=== PATIENT | male | born 1940 | race Caucasian/White ===

== ENCOUNTER 2018-03-03 13:41 | Emergency (ER) | payer OTHER ==
[~2018-03-03] VITALS: Ht 182.9 cm; Wt 80.7 kg
[~2018-03-03 13:41] MED LIST: ACETAMINOPHEN325 M1 PO; ASPERCREME 1141.7 GM; ASPIRIN325 PO; CLARITIN10 MG PO; CLOBETASOL EMOL15 GM TOP; COLACE100 MG PO; EFFIENT10 MG PO; FISH OIL 1,0001 EAC5 PO; FLOMAX0.4 MG PO; FLONASE 0.05%50 MCG NS; HALOBETASOL TOP; IBUPROFEN 800800 M1 PO; MEDROL DOSPAK21 TAB PO; MOBIC15 MG PO; NEURONTIN 300300 M1 PO; NITROGLYCERIN0.4 MG SL; NITROGLYCERIN0.4 MG SUBLING; NOHOMEMEDICATIONS; ONDANSETRON HCL4 M1 PO; ONDANSETRON HCL4 M2 PO; PERCOCET 5-3251 EACH PO; SIMVASTATIN20 MG PO; SIMVASTATIN40 MG PO; TAGAMETTAB PO; TOPROL XL25 MG PO; TYLENOL325 MG PO; VOLTAREN GEL 1100 G1 TOP; ZPAK PO
[2018-03-03] MEDS ORDERED: VALIUM5 MG PO (15:00)
== END 2018-03-03 15:05 | disposition home or self-care (01) ==
LOC: ER 13:41
DX: G89.29 Other chronic pain (principal); M54.5 Low back pain; I10 Essential (primary) hypertension; I25.10 Atherosclerotic heart disease of native coronary artery without angina pectoris; E78.5 Hyperlipidemia, unspecified; L40.9 Psoriasis, unspecified; Z96.643 Presence of artificial hip joint, bilateral; Z86.73 Personal history of transient ischemic attack (TIA), and cerebral infarction without residual deficits; Z79.899 Other long term (current) drug therapy; Z88.0 Allergy status to penicillin; Z88.1 Allergy status to other antibiotic agents; Z88.8 Allergy status to other drugs, medicaments and biological substances; Z91.041 Radiographic dye allergy status

== ENCOUNTER 2018-04-29 12:08 | Emergency (ER) | payer OTHER ==
[~2018-04-29] VITALS: Ht 182.9 cm; Wt 80.7 kg
[~2018-04-29 12:08] MED LIST changes: +VALIUM5 MG PO
[2018-04-29 13:16] LABS: URINE BILIRUBIN NEGATIVE (Negative); URINE BLOOD NEGATIVE (Negative); URINE CLARITY CLEAR; URINE COLOR YELLOW; URINE GLUCOSE-RANDOM* NEGATIVE (Negative); URINE KETONES NEGATIVE (Negative); URINE LEUKOCYTES-REFLEX NEGATIVE (Negative); URINE NITRITE-REFLEX NEGATIVE (Negative); URINE PROTEIN (DIPSTICK) NEGATIVE (Negative); URINE UROBILINOGEN 0.2 E.U./dl (0.2-1.0)
[2018-04-29 13:31] LABS: ABSOLUTE NEUTROPHILS 4.5 thou/uL (1.4-8.2); BASOPHILS 0.9 % (0.0-2.0); EOSINOPHILS 1.3 % (0.0-3.0); HEMATOCRIT 34.1 % (42.0-52.0); HEMOGLOBIN 11.9 gm/dL (14.0-18.0); LYMPHOCYTES 30.9 % (24.0-44.0); MCH 33.9 pg (26.0-34.0); MCV 96.8 fL (80.0-100.0); MONOCYTES 8.5 % (1.0-8.0); PLATELET COUNT 161 thou/uL (150-400); POLYS 58.4 % (36.0-66.0); RBC 3.53 mil/uL (4.50-6.00); RDW 14.6 % (10.5-14.5); WBC 7.7 thou/uL (4.0-11.0)
[2018-04-29 13:34] LABS: CALCIUM 10.3 mg/dL (8.5-10.1); CREATININE 1.6 mg/dL (0.7-1.3); POTASSIUM 4.2 mmol/L (3.5-5.1)
[2018-04-29] MEDS ORDERED: SENNA-DOCUSATE1 EAC1 PO (16:57)
[2018-04-29] MEDS ORDERED: PERCOCET 5-3251 EACH PO (16:57)
[2018-04-29 17:06] VITALS: BP 130/71
== END 2018-04-29 17:13 | disposition home or self-care (01) ==
LOC: ER 12:08
PROVIDERS: Emergency Medicine
DX: M54.42 Lumbago with sciatica, left side (principal); M54.41 Lumbago with sciatica, right side; M48.02 Spinal stenosis, cervical region; I10 Essential (primary) hypertension; N40.0 Benign prostatic hyperplasia without lower urinary tract symptoms; I25.10 Atherosclerotic heart disease of native coronary artery without angina pectoris; E78.5 Hyperlipidemia, unspecified; Z98.62 Peripheral vascular angioplasty status; Z96.643 Presence of artificial hip joint, bilateral; Z88.1 Allergy status to other antibiotic agents; Z88.0 Allergy status to penicillin; Z91.041 Radiographic dye allergy status; Z88.8 Allergy status to other drugs, medicaments and biological substances

== ENCOUNTER 2018-05-16 14:19 | Emergency (ER) | payer OTHER ==
[~2018-05-16] VITALS: Ht 182.9 cm; Wt 77.1 kg
[~2018-05-16 14:19] MED LIST changes: +SENNA-DOCUSATE1 EAC1 PO
[2018-05-16 14:56] LABS: ABSOLUTE NEUTROPHILS 3.5 thou/uL (1.4-8.2); BASOPHILS 0.9 % (0.0-2.0); EOSINOPHILS 0.5 % (0.0-3.0); HEMATOCRIT 31.1 % (42.0-52.0); HEMOGLOBIN 10.8 gm/dL (14.0-18.0); LYMPHOCYTES 29.1 % (24.0-44.0); MCH 33.9 pg (26.0-34.0); MCHC 34.6 g/dL (28.0-37.0); MONOCYTES 10.9 % (1.0-8.0); PLATELET COUNT 194 thou/uL (150-400); POLYS 58.6 % (36.0-66.0); RBC 3.18 mil/uL (4.50-6.00); RDW 14.5 % (10.5-14.5)
[2018-05-16 15:05] LABS: CALCIUM 9.6 mg/dL (8.5-10.1); CREATININE 1.6 mg/dL (0.7-1.3); POTASSIUM 3.8 mmol/L (3.5-5.1)
[2018-05-16 15:11] LABS: ALBUMIN 3.5 g/dL (3.4-5.0); TOTAL BILIRUBIN 0.4 mg/dL (<0.1-1.0); TOTAL PROTEIN 8.7 g/dL (6.4-8.2)
[2018-05-16 15:21] LABS: URINE BILIRUBIN NEGATIVE (Negative); URINE BLOOD NEGATIVE (Negative); URINE CLARITY CLEAR; URINE COLOR YELLOW; URINE GLUCOSE-RANDOM* NEGATIVE (Negative); URINE KETONES NEGATIVE (Negative); URINE LEUKOCYTES NEGATIVE (Negative); URINE NITRITE NEGATIVE (Negative); URINE PROTEIN (DIPSTICK) NEGATIVE (Negative); URINE UROBILINOGEN 0.2 E.U./dl (0.2-1.0)
[2018-05-16] MEDS ORDERED: ASPIR 8181 M1 PO (15:22)
[2018-05-16 16:40] VITALS: BP 152/74
== END 2018-05-16 16:46 | disposition home or self-care (01) ==
LOC: ER 14:19
PROVIDERS: Emergency Medicine
DX: R10.33 Periumbilical pain (principal); R19.7 Diarrhea, unspecified; I10 Essential (primary) hypertension; I25.10 Atherosclerotic heart disease of native coronary artery without angina pectoris; M19.90 Unspecified osteoarthritis, unspecified site; E78.5 Hyperlipidemia, unspecified; L40.9 Psoriasis, unspecified; Z91.048 Other nonmedicinal substance allergy status; Z88.1 Allergy status to other antibiotic agents; Z88.0 Allergy status to penicillin; Z88.8 Allergy status to other drugs, medicaments and biological substances; Z91.041 Radiographic dye allergy status; Z96.643 Presence of artificial hip joint, bilateral

== ENCOUNTER 2018-08-23 16:39 | Inpatient (IN) | payer OTHER ==
[~2018-08-23] VITALS: Ht 182.9 cm; Wt 81.2 kg
[~2018-08-23 16:39] MED LIST changes: +ASPIR 8181 M1 PO
[2018-08-23 16:58] VITALS: BP 144/63
[2018-08-23 17:35] LABS: BASOPHILS 0.3 % (0.0-2.0); EOSINOPHILS 0.3 % (0.0-3.0); HEMATOCRIT 31.3 % (42.0-52.0); HEMOGLOBIN 10.7 gm/dL (14.0-18.0); LYMPHOCYTES 11.6 % (24.0-44.0); MCH 34.5 pg (26.0-34.0); MCHC 34.2 g/dL (28.0-37.0); MCV 100.9 fL (80.0-100.0); MONOCYTES 3.2 % (1.0-8.0); PLATELET COUNT 113 thou/uL (150-400); POLYS 84.6 % (36.0-66.0); RDW 15.9 % (10.5-14.5); WBC 9.4 thou/uL (4.0-11.0)
[2018-08-23 17:58] LABS: CALCIUM 9.4 mg/dL (8.5-10.1); CREATININE 1.3 mg/dL (0.7-1.3); POTASSIUM 3.7 mmol/L (3.5-5.1)
[2018-08-23 18:06] LABS: ALBUMIN 3.7 g/dL (3.4-5.0); TOTAL BILIRUBIN 1.8 mg/dL (<0.1-1.0); TOTAL PROTEIN 8.6 g/dL (6.4-8.2)
[2018-08-23 20:44] LABS: URINE BILIRUBIN NEGATIVE (Negative); URINE BLOOD NEGATIVE (Negative); URINE CLARITY CLEAR; URINE COLOR YELLOW; URINE GLUCOSE-RANDOM* NEGATIVE (Negative); URINE KETONES NEGATIVE (Negative); URINE LEUKOCYTES NEGATIVE (Negative); URINE NITRITE NEGATIVE (Negative); URINE PROTEIN (DIPSTICK) NEGATIVE (Negative); URINE SPECIFIC GRAVITY <= 1.005 (1.005-1.035); URINE UROBILINOGEN 0.2 E.U./dl (0.2-1.0)
[2018-08-23 21:17] VITALS: BP 143/62
[2018-08-23 21:29] VITALS: BP 113/57
[2018-08-23] MEDS ORDERED: COLACE100 MG PO (22:22)
[2018-08-23 22:24] VITALS: BP 119/56
[2018-08-24 03:24] VITALS: BP 122/61
[2018-08-24 05:53] LABS: HEMATOCRIT 27.4 % (42.0-52.0); HEMOGLOBIN 9.5 gm/dL (14.0-18.0); MCH 35.1 pg (26.0-34.0); MCHC 34.9 g/dL (28.0-37.0); MCV 100.8 fL (80.0-100.0); RBC 2.72 mil/uL (4.50-6.00); RDW 15.9 % (10.5-14.5); WBC 8.9 thou/uL (4.0-11.0)
[2018-08-24 06:12] LABS: CALCIUM 8.4 mg/dL (8.5-10.1); CREATININE 1.4 mg/dL (0.7-1.3); POTASSIUM 3.9 mmol/L (3.5-5.1); TOTAL BILIRUBIN 0.9 mg/dL (<0.1-1.0); TOTAL PROTEIN 7.5 g/dL (6.4-8.2)
[2018-08-24 07:19] VITALS: BP 104/57
--- NOTE | 2018-08-24 07:52 | EKG ---
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1940 Requested By: Linda Moise Order Number: [id number] MD: Kishor De La Vega Measurements Intervals [place] Rate: 75 P: 49 IN: 210 QRS: 21 QRSD: 103 T: 31 QT: 394 QTc: 441 Interpretive Statements Sinus rhythm RSR' in V1 or V2, probably normal variant Compared to ECG 04/18/2016 02:06:14 No significant changes Electronically Signed On 08-24-2018 7:52:36 CDT by Kishor De La Vega [email or web address] ��������������������������������������������� <ELECTRONICALLY SIGNED> ���������������������������������������� By: Kishor De La Vega MD, [facility] ��������������������������������������������� 08/24/18 0752 [id number] Kishor De La Vega MD, [facility] /EPI
--- NOTE | 2018-08-24 10:20 | NUR ---
chart review, cm visited with pt at bedside. pt a & o x 3 with forgetfulness and pleasant. wiyot. intro to cm, home health, post acute. " i will be going home with my she is nurse at [employer]. have 2 boy with good jobs and daughter who good nurse to. no steps at home, cane, walker, wc, and power scooter. does errands and medications, she lays them out and i take them. she helps me with dressing and stay with me when shower. hh in past. why to i need hh tell me what to do. drives. 1 little fall in past year. no rehab in past. 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 will cont following as needed for dc needs.
[2018-08-24 15:03] VITALS: BP 116/58
[2018-08-24 20:05] VITALS: BP 106/77
--- NOTE | 2018-08-24 20:08 | NUR ---
ASSUMED PATIENT CARE AT 0715. PATIENT AWAKE, ALERT AND ORIENTED X 4. PATIENT FRUSTRATED BECAUSE HE IS NPO. MOUTH SWABS PROVIDED WITH ICE WATER. USED URINAL AT BEDSIDE. MEDICATED WITH MORPHINE THIS MORNING AND SLEPT FOR A COUPLE OF HOURS. VISITED THIS AFTERNOON. PATIENT COMPLAINED THIS AFTERNOON THAT NO ONE IS DOING ANYTHING FOR ME AND I WANT TO GO HOME. DR. GIORDANO VISITED AND GAVE EMOTIONAL SUPPORT. PATIENT THEN DECIDED HE WAS GOING HOME AND TOOK HIS TELEMETRY OFF, AND STARTED PUTTING HIS CLOTHES ON. THIS RN CALLED DR. SILVA AND RECEIVED ORDER FOR SEROQUEL AND TO TELL PATIENT IF HE WANTS TO GO HOME HE WILL HAVE TO GO AMA. STEPHANIE RN THEN SPOKE WITH PATIENT AND CONVINCED HIM TO STAY. SEROQUEL GIVEN AND PATIENT THEN RESTED WITH NO FURTHER COMPLAINTS. FALL PRECAUTIONS IN PLACE.
[2018-08-25 03:25] VITALS: BP 154/60
[2018-08-25 06:04] LABS: ALBUMIN 2.9 g/dL (3.4-5.0); CALCIUM 8.3 mg/dL (8.5-10.1); CREATININE 1.2 mg/dL (0.7-1.3); POTASSIUM 3.9 mmol/L (3.5-5.1); TOTAL BILIRUBIN 0.9 mg/dL (<0.1-1.0); TOTAL PROTEIN 7.5 g/dL (6.4-8.2)
[2018-08-25 06:10] LABS: CHOLESTEROL 176 mg/dL (<200); HDL CHOLESTEROL 41 mg/dL (>40); TC:HDL 4.3 Ratio (Not establshd)
[2018-08-25 06:12] LABS: LDL CHOLESTEROL 120 mg/dL (<100); TRIGLYCERIDE 76 mg/dL (<150); VLDL 15 mg/dL (<40)
--- NOTE | 2018-08-25 07:59 | NUR ---
progress pt up with assist slightly unsteady. vss, iv to lf with ns@ 100ccs/hr. voiding per urinal but incontinent x 2. 2 doses of morphine given with effect for abdominal pain pt slept after. on room air, reoriented to room call light and poc, continue to monitor.
[2018-08-25 08:21] LABS: FOLIC ACID 11.3 ng/mL (8.6-58.9)
[2018-08-25 08:43] VITALS: BP 152/60
--- NOTE | 2018-08-25 14:30 | NUR ---
ASSUMED CARE PT 0700. PAIN MANAGED WITH MEDICATIONS. ALERTX3 ANXIOUS, IMPULSIVE, AND AGITATED REQUIRES REORRIANTATION AT TIMES. TOLERATING CLEAR LIQUID DIET. DENIES USE OF ETOH. CONFIRMED DOES NOT DRINK. FULL FALL PRECAUTIONS IN PLACE. CONTINUE TO MONITOR
[2018-08-25 19:15] VITALS: BP 132/77
[2018-08-26 04:04] VITALS: BP 149/68
[2018-08-26 04:13] VITALS: BP 115/67
[2018-08-26 05:44] LABS: HEMATOCRIT 29.2 % (42.0-52.0); MCH 34.8 pg (26.0-34.0); MCHC 34.2 g/dL (28.0-37.0); MCV 101.8 fL (80.0-100.0); RBC 2.86 mil/uL (4.50-6.00); RDW 15.9 % (10.5-14.5); WBC 9.4 thou/uL (4.0-11.0)
[2018-08-26 05:56] LABS: ALBUMIN 2.9 g/dL (3.4-5.0); CALCIUM 8.5 mg/dL (8.5-10.1); POTASSIUM 3.5 mmol/L (3.5-5.1); TOTAL BILIRUBIN 0.8 mg/dL (<0.1-1.0); TOTAL PROTEIN 7.3 g/dL (6.4-8.2)
[2018-08-26 07:39] VITALS: BP 137/82
[2018-08-26 11:26] VITALS: BP 137/82
--- NOTE | 2018-08-26 13:30 | NUR ---
DIS PT IS FOR DC TODAY, IV AND TELE DC'D. DC PACKET PROVIDED. INFORMED ABOUT DC.
== END 2018-08-26 15:08 | disposition home or self-care (01) | DRG 438 ==
LOC: ER 16:39 → EROBS 21:09 → 4W 21:09
PROVIDERS: Nurse Practitioner; Nurse Practitioner Family; Student in an Organized Health Care Education/Training Program; ADMIT Hospitalist
DX: K85.90 Acute pancreatitis without necrosis or infection, unspecified (principal); E43 Unspecified severe protein-calorie malnutrition; R74.0 Nonspecific elevation of levels of transaminase and lactic acid dehydrogenase [LDH]; I10 Essential (primary) hypertension; M19.90 Unspecified osteoarthritis, unspecified site; I25.10 Atherosclerotic heart disease of native coronary artery without angina pectoris; E78.5 Hyperlipidemia, unspecified; N40.0 Benign prostatic hyperplasia without lower urinary tract symptoms; L40.9 Psoriasis, unspecified; D53.9 Nutritional anemia, unspecified; Z96.643 Presence of artificial hip joint, bilateral; K21.9 Gastro-esophageal reflux disease without esophagitis; M62.84 Sarcopenia; K81.9 Cholecystitis, unspecified; D53.1 Other megaloblastic anemias, not elsewhere classified; E53.8 Deficiency of other specified B group vitamins; M54.5 Low back pain; N32.89 Other specified disorders of bladder; G89.29 Other chronic pain; D69.6 Thrombocytopenia, unspecified; Z95.5 Presence of coronary angioplasty implant and graft; Z68.24 Body mass index [BMI] 24.0-24.9, adult; I25.2 Old myocardial infarction; Z72.89 Other problems related to lifestyle; Z86.73 Personal history of transient ischemic attack (TIA), and cerebral infarction without residual deficits; Z79.82 Long term (current) use of aspirin; Z87.891 Personal history of nicotine dependence; Z79.899 Other long term (current) drug therapy; Z88.0 Allergy status to penicillin; Z88.8 Allergy status to other drugs, medicaments and biological substances; Z88.1 Allergy status to other antibiotic agents; Z91.041 Radiographic dye allergy status
CPT/HCPCS: 10045

== ENCOUNTER 2018-12-15 10:21 | Inpatient (IN) | payer OTHER ==
[~2018-12-15] VITALS: Ht 182.9 cm; Wt 72.2 kg
[2018-12-15 10:25] VITALS: BP 126/64
--- NOTE | 2018-12-15 11:57 | EKG ---
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1940 Requested By: Linda Moise Order Number: [id number] MD: Kishor De La Vega Measurements Intervals [place] Rate: 74 P: 6 LA: 187 QRS: 2 QRSD: 106 T: 34 QT: 389 QTc: 432 Interpretive Statements Sinus rhythm RSR' in V1 or V2, right VCD Compared to ECG 08/23/2018 17:34:15 No significant change was found Electronically Signed On 12-15-2018 11:56:53 CDT by Kishor De La Vega [email or web address] ��������������������������������������������� <ELECTRONICALLY SIGNED> ���������������������������������������� By: Kishor De La Vega MD, [facility] ��������������������������������������������� 12/15/18 1156 1140 1140 Kishor De La Vega MD, [facility] /EPI
[2018-12-15 12:06] LABS: HEMATOCRIT 30.5 % (42.0-52.0); HEMOGLOBIN 10.4 gm/dL (14.0-18.0); MCH 36.3 pg (26.0-34.0); MCV 106.9 fL (80.0-100.0); RBC 2.85 mil/uL (4.50-6.00); RDW 16.7 % (10.5-14.5)
[2018-12-15 12:14] LABS: APTT 34.8 Seconds (24.5-32.8); INR 1.2; PROTIME 12.6 Seconds (9.3-11.4)
[2018-12-15 12:17] LABS: CALCIUM 9.2 mg/dL (8.5-10.1); CREATININE 1.8 mg/dL (0.7-1.3); POTASSIUM 4.1 mmol/L (3.5-5.1)
[2018-12-15 12:21] LABS: ALBUMIN 3.2 g/dL (3.4-5.0); TOTAL BILIRUBIN 3.5 mg/dL (<0.1-1.0); TOTAL PROTEIN 8.3 g/dL (6.4-8.2)
[2018-12-15 12:53] LABS: TROPONIN-I <0.06 ng/mL (<0.06)
[2018-12-15 12:54] LABS: ABSOLUTE NEUTROPHILS 18.6 thou/uL (1.4-8.2); ANISOCYTOSIS 1+; MACROCYTES 1+
[2018-12-15 12:55] LABS: LARGE PLATELETS OCCASIONAL; PLATELET COUNT 72 thou/uL (150-400); PLATELET ESTIMATE SLIGHTLY DECREASED
[2018-12-15 13:07] LABS: URINE BILIRUBIN 1+ (Negative); URINE BLOOD 2+ (Negative); URINE CLARITY CLEAR; URINE COLOR YELLOW; URINE GLUCOSE-RANDOM* NEGATIVE (Negative); URINE KETONES NEGATIVE (Negative); URINE LEUKOCYTES NEGATIVE (Negative); URINE NITRITE NEGATIVE (Negative); URINE PROTEIN (DIPSTICK) 2+ (Negative); URINE SPECIFIC GRAVITY 1.015 (1.005-1.035)
[2018-12-15 13:16] LABS: ICTOTEST (BILI CONFIRMATORY) Positive (Negative)
[2018-12-15 13:19] LABS: BACTERIA 1-9 Few /HPF (None Seen); CASTS None Seen /LPF (None Seen); SQUAMOUS 0-3 Few /LPF (0-3); URINE RBC 0-2 Rare /HPF (0-2); URINE WBC 0-5 Rare /HPF (0-5)
[2018-12-15 13:20] LABS: CRYSTALS None Seen /LPF (None Seen)
[2018-12-15 13:45] VITALS: BP 130/67
--- NOTE | 2018-12-15 14:24 | NUR ---
KRISTEN IS NOT ABLE TO TAKE REPORT AND WILL CALL ME BACK PER KELLEN; ALSO REPORTS THAT ROOM IS STILL NOT CLEAN
[2018-12-15] MEDS ORDERED: ATIVAN0.5 MG PO (15:40)
[2018-12-15 16:00] VITALS: BP 142/71
[2018-12-15 19:58] VITALS: BP 164/88
[2018-12-16 00:01] VITALS: BP 114/68
--- NOTE | 2018-12-16 03:57 | NUR ---
TURNS Q2 HOURS. BECAME RESTLESS AND NEEDED A DOSE OF THE ANTI-ANXIETY MEDICATION. APPLIED AN EXTERNAL CATHETER FOR COMFORT. CONTINUES ON IV FLUIDS. CAREPLAN REVIEWED.
[2018-12-16 05:32] VITALS: BP 134/73
[2018-12-16 08:24] VITALS: BP 137/69
[2018-12-16 12:34] LABS: HEMOGLOBIN 9.6 gm/dL (14.0-18.0)
[2018-12-16 12:35] LABS: HEMATOCRIT 28.2 % (42.0-52.0); MCH 36.6 pg (26.0-34.0); MCV 107.6 fL (80.0-100.0); RBC 2.62 mil/uL (4.50-6.00); RDW 17.4 % (10.5-14.5); WBC 11.8 thou/uL (4.0-11.0)
[2018-12-16 12:47] LABS: ALBUMIN 2.6 g/dL (3.4-5.0); DIRECT BILIRUBIN 0.9 mg/dL (<0.1-0.3); TOTAL BILIRUBIN 1.4 mg/dL (<0.1-1.0); TOTAL PROTEIN 7.2 g/dL (6.4-8.2)
--- NOTE | 2018-12-16 15:15 | NUR ---
Assumed care of Pt at 0700. Arousable but confused. resting in bed for most of day, fidgetty but not requiring anxiety meds. currently afebrile. low sugars throughout the day - maintenance fluids adjusted per physician - showing improvement. ext condom cath in place - good output. positive sepsis screening - physician notified - abx adjusted. mild tenderness to abdomen. sinus on telemetry. at bedside for part of day. pt progressing toward poc goals.
[2018-12-16 16:52] VITALS: BP 145/70
[2018-12-16 19:55] VITALS: BP 152/75
[2018-12-17] VITALS: BP 169/90
[2018-12-17 04:00] VITALS: BP 159/81
--- NOTE | 2018-12-17 04:11 | NUR ---
PATIENT IS PROGRESSING SLOWLY IN HIS CARE PLAN. VITAL SIGNS STABLE WITH NURSE NOT PERCEIVING AND PAIN OR NAUSEA ON HIS BEHALF. ORIENTED TO SELF, PATIENT IS UNABLE TO PARTICIPATE IN CARE OR CALL FOR NEEDS. BREATHING STABLE ON OXYGEN EVIDENCED BY SPOT OXYGENATION CHECKS. PATIENT HAS SHOWN THICK YELLOW SPUTUM WHICH REQUIRES SUCTION IN ORDER TO CLEAR. NPO THROUGHOUT SHIFT. PATIENT HAS BEEN TURNED FREQUENTLY AND CHECKED FOR INCONTINENCE. ADEQUATE OUTPUT THROUGH CONDOM CATHETER. CONTINUE PLAN OF CARE.
[2018-12-17 05:42] LABS: HEMOGLOBIN 9.6 gm/dL (14.0-18.0); RDW 16.7 % (10.5-14.5)
[2018-12-17 05:44] LABS: ABSOLUTE NEUTROPHILS 11.6 thou/uL (1.4-8.2); BASOPHILS 0.2 % (0.0-2.0); EOSINOPHILS 0.4 % (0.0-3.0); HEMATOCRIT 28.1 % (42.0-52.0); LYMPHOCYTES 4.8 % (24.0-44.0); MCH 36.1 pg (26.0-34.0); MCHC 34.2 g/dL (28.0-37.0); MCV 105.4 fL (80.0-100.0); PLATELET COUNT 48 thou/uL (150-400); POLYS 91.6 % (36.0-66.0); RBC 2.66 mil/uL (4.50-6.00); WBC 12.7 thou/uL (4.0-11.0)
[2018-12-17 06:22] LABS: CALCIUM 8.2 mg/dL (8.5-10.1); CREATININE 1.2 mg/dL (0.7-1.3); POTASSIUM 3.1 mmol/L (3.5-5.1)
[2018-12-17 07:29] VITALS: BP 150/86
--- NOTE | 2018-12-17 10:40 | HC ---
[facility] [place] [address] CONSULTATION Name: IQRA BRYAN Room #: 362-P ADM IN M.R.#: [id number] Admission: 12/15/18 ������������������ Attend Phys: Mickey Martinez MD Discharge: ������������������ Date of : 38 Report #: [id number] THIS REPORT FOR: //name// CC: Mickey Bradley DATE OF SERVICE: 12/16/2018 HISTORY OF PRESENT ILLNESS: The patient is an 78-year-old male who was admitted through the Emergency Room yesterday with abdominal pain, was noted to have acute pancreatitis. He had a similar episode and hospitalization in August of this year. At that time, his pancreatitis was thought to possibly be related to alcohol. He is unable to give any significant history currently, at this time, he is very somnolent. The history obtained was through the computer and medical records as well as I spoke with his over the phone. His reports no alcohol use at least in over a month and usually he is able to answer questions appropriately. Overnight, one of the blood cultures grew out Gram-negative rods. He has been started on IV antibiotics. The patient's lipase on admission was 5997, today is 940. His total bilirubin yesterday was 3.5. During his hospitalization in August, his lipase is 24,000, dropping to 817 the following day. He was seen by General Surgery at that time. During that hospitalization, he had both a CT scan as well as an ultrasound of the abdomen and pelvis. The ultrasound at that time showed the gallbladder was mildly distended, no evidence of cholelithiasis was seen, no ductal dilation. CT with similar findings at that time in August. There was stranding and edema around the pancreas diffusely consistent with pancreatitis, mild dilation of the proximal duodenum, most likely related to pancreatitis at that time. The patient had a CT scan yesterday on admission of his abdomen and pelvis, which showed changes of moderate pancreatitis, gallbladder was unremarkable, may be a tiny fluid collection between the posterior gallbladder wall and adjacent liver, the liver showed no significant intrinsic abnormalities. The patient has now been started on aztreonam. He has been getting morphine on a p.r.n. basis for pain control. He is on IV fluids. He is n.p.o. currently. PAST MEDICAL HISTORY: Acute pancreatitis, this is the second episode, possible history of GI ulcers, previous hip replacement, coronary artery disease, hyperlipidemia, psoriasis. He has had angioplasty with stent placement x 3. Reportedly, last colonoscopy 2002, history of previous CVA, benign prostatic hypertrophy, history of arrhythmia. MEDICATIONS ON ADMISSION: Colace, Neurontin, aspirin 81 mg, nitroglycerin p.r.n., diclofenac ointment. REVIEW OF SYSTEMS: Limited due to the patient's mental status, but as per HPI. [address] [address] CONSULTATION Name: IQRA BRYAN Room #: 362-P ADM IN M.R.#: [id number] Admission: 12/15/18 ������������������ Attend Phys: Mickey Martinez MD Discharge: ������������������ Date of : 38 Report #: [id number] ALLERGIES: He has multiple, please see the computer for listed allergies. SOCIAL HISTORY: Previous smoker. reports previous history of alcohol use; however, none in the last month. FAMILY HISTORY: Unknown as the patient is adopted. PHYSICAL EXAMINATION: VITAL SIGNS: Temperature is 96.9, pulse 74, blood pressure 137/69, respiratory rate is 16. GENERAL: He is somnolent. He is arousable. He is answering some questions, but is difficult to communicate with as he appears very somnolent and tired. He is in no acute distress. HEENT: Sclerae nonicteric. Oropharynx clear. NECK: Supple without lymphadenopathy. CARDIOVASCULAR: Regular rate and rhythm. CHEST: Clear to auscultation anteriorly bilaterally. ABDOMEN: Soft. He is mildly tender to palpation. He is nondistended. Positive bowel sounds noted. EXTREMITIES: No cyanosis, clubbing, or edema. LABORATORY DATA: Sodium 134, potassium 4.1, chloride 98, bicarbonate 24, BUN 28, creatinine 1.8, glucose 93. AST is 101. Lipase 940. Total bilirubin yesterday 3.5, alkaline phosphatase 258, ALT 71, total protein 8.3, albumin 3.2. Lactic acid level 1.7. CPK is 475. Troponin less than 0.06. INR 1.2. WBC is 10.0, this was yesterday, hemoglobin 10.4, MCV 106.9, platelet count is 72,000. UA, bacteria 1-9, WBC is 0-5, nitrite negative. ASSESSMENT AND PLAN: Acute pancreatitis. This is a recurrent episode. The patient had a similar episode in August. At that time, was thought possibly be due to alcohol, there has been no alcohol history at least in the last month per the today. Total bilirubin yesterday was elevated at 3.5. Still need to consider the possibility of choledocholithiasis, although his liver and bile duct appeared normal on CT on admission. We will obtain an ultrasound today. I do not think the patient could tolerate MRCP at this time due to his mental status. He also has Gram-negative rods growing out of 1 blood culture. This could be coming from bile duct source, but again his bile duct does not appear to be dilated at this time. Agree with IV antibiotics, IV fluids, and n.p.o., which has currently been already prescribed. We will repeat liver function tests. We will check a triglyceride level. I reviewed the patient's medications, none of which are high on the list for causing pancreatitis. There has been no mass noted on previous CT or ultrasound of the pancreas. He did not have an endoscopic ultrasound as was discussed after his last visit in August, may need to consider an MRCP in the near future to rule out choledocholithiasis. Ultrasound will be done today. We will continue to monitor closely. [address] [address] CONSULTATION Name: IQRA BRYAN Room #: 362-P ADM IN M.R.#: [id number] Admission: 12/15/18 ������������������ Attend Phys: Mickey Martinez MD Discharge: ������������������ Date of : 38 Report #: [id number] Thank you for allowing me to participate in his care. ��������������������������������������������� <ELECTRONICALLY SIGNED> ���������������������������������������� By: Rocael Kenny MD ��������������������������������������������� 12/17/18 1040 1115 1843 Rocael Kenny MD /nt
[2018-12-17 12:50] LABS: CALCIUM 8.9 mg/dL (8.5-10.1); CREATININE 1.1 mg/dL (0.7-1.3)
[2018-12-17 12:52] LABS: POTASSIUM 2.9 mmol/L (3.5-5.1)
[2018-12-17 15:22] VITALS: BP 153/62
[2018-12-17 18:03] LABS: ALBUMIN 2.5 g/dL (3.4-5.0); CALCIUM 9.2 mg/dL (8.5-10.1); CREATININE 1.2 mg/dL (0.7-1.3); TOTAL BILIRUBIN 1.2 mg/dL (<0.1-1.0); TOTAL PROTEIN 7.8 g/dL (6.4-8.2)
[2018-12-17 18:05] LABS: POTASSIUM 3.9 mmol/L (3.5-5.1)
[2018-12-17 19:28] VITALS: BP 154/84
[2018-12-18 04:22] LABS: CALCIUM 8.5 mg/dL (8.5-10.1); CREATININE 1.1 mg/dL (0.7-1.3); POTASSIUM 3.6 mmol/L (3.5-5.1)
[2018-12-18 04:33] VITALS: BP 173/75
--- NOTE | 2018-12-18 06:00 | NUR ---
Patient making slow progress towards outcome goals. Vital signs and rhythm stable. Neuro unchanged. Arousable but unable to follow commands or answer questions. With periods of restlessness, thrashing legs around in bed, grimacing looking like in pain, Medicated with Lorazepam and Morphine for comfort. Incomtinent of bladder. Unable to maintain external male catheter.. IVFluids infusing Slowly correcting Sodium. Kept NPO for high risk for aspiration.
[2018-12-18 07:39] VITALS: BP 170/96
--- NOTE | 2018-12-18 14:08 | NUR ---
MARIANA FROM [employer] CALLED OVER FOR AN RN TO GIVE MORPHINE 3.2MG IV FOR BILILARY SCAN. MORPHINE PULLED FROM PYXSIS AND 0.8MG WASTED WITH RALF GAYLE. CONFIRMED CORRECT PT AND REVIEWED ALLERGIES. IV FLUSHED WITHOUT ANY DIFFICULTY AND MORPHINE 3.2MG IV GIVEN WITHOUT ANY COMPLICATIONS.
--- NOTE | 2018-12-18 15:40 | NUR ---
INITIAL ASSESSMENT: SW received high risk nursing referral. Reviewed chart and spoke with nursing and attending physician. Pt was admitted from home due to abdominal pain/pancreatitis. Pt had PIPIDA scan earlier today. SW met with pt and at bedside. Introduced role of SW. Pt was resting during time of SW visit. Pt's states that she and pt reside in a ranch style home. Prior to admission, pt did not use any DME. Pt has always declined HH services in the past. Pt's PCP is Dr. Henrique Bradley. SW discussed post-acute needs. Pt's states that if pt needs post-acute placement, she would like a referral to be sent to [facility]. Pt's works at [employer]. SW is following to assist a needed with discharge planning.
[2018-12-18 16:47] VITALS: BP 140/81
[2018-12-18 19:43] VITALS: BP 147/106
[2018-12-19] VITALS (11 sets, daily range): BP systolic 138–184; BP diastolic 73–94
--- NOTE | 2018-12-19 04:37 | NUR ---
Pt. has slept well most of the night. Repositioned prn for comfort. Moans when being cleaned and repositioned then calm and asleep when resting.Bed alarm for safety.O2 at 2L/NC , no respiratory distress. Incontinent of bladder , attempted external male cath but didn't stay in place. Oriented to self only. Pt. reporiented. Kept NPO per order. Will continue to monitor.
[2018-12-19 04:46] LABS: HEMATOCRIT 27.7 % (42.0-52.0); HEMOGLOBIN 9.5 gm/dL (14.0-18.0); MCH 36.1 pg (26.0-34.0); MCHC 34.3 g/dL (28.0-37.0); MCV 105.2 fL (80.0-100.0); RBC 2.63 mil/uL (4.50-6.00); RDW 16.6 % (10.5-14.5); WBC 11.2 thou/uL (4.0-11.0)
[2018-12-19 05:20] LABS: ALBUMIN 2.1 g/dL (3.4-5.0); CALCIUM 8.7 mg/dL (8.5-10.1); CREATININE 1.1 mg/dL (0.7-1.3); POTASSIUM 3.1 mmol/L (3.5-5.1); TOTAL BILIRUBIN 1.4 mg/dL (<0.1-1.0); TOTAL PROTEIN 7.4 g/dL (6.4-8.2)
[2018-12-19 08:13] LABS: FOLIC ACID 4.2 ng/mL (8.6-58.9)
--- NOTE | 2018-12-19 10:29 | NUR ---
Assess due to dx of acute pancreatitis. Hx etoh abuse. Has been npo x 4 days, lipase levels improving. No hx wt loss. On D10 fluids. B12 and folate levels are low, recommend supplementation. Otherwise low nutrition risk and will followup again on 12/22 for ability to advance diet.
[2018-12-19 13:39] LABS: APTT 32.8 Seconds (24.5-32.8); PROTIME 10.9 Seconds (9.3-11.4)
--- NOTE | 2018-12-19 14:12 | NUR ---
SW reviewed chart and spoke with nursing and attending physician. ID and surgery consulted due to cystic duct stone. SW is following to assist as needed with discharge planning.
--- NOTE | 2018-12-19 18:16 | NUR ---
Assumed care at 0700 this AM. Patient not following commands nor is oriented. Patient has only made incomprehensible sounds and has slept most of the day. Patient does open eyes to stimulus and occassionally to noise around him. Patient taken to IR today for a cholecystostomy tube placement. Tube remains intact, hanging to gravity and draining well. Post procedure vital signs completed per written orders. Telephone consent for procedure obtained by two nurses this afternoon from the patients , Misti. Misti called back after the procedure and was given an update on his status and how he is doing; she said she will be in tomorrow to visit her . Fluids infusing and antibiotics hung. Fall precautions in place. Slow progress toward plan of care.
[2018-12-20 00:50] VITALS: BP 133/61
[2018-12-20 04:01] VITALS: BP 138/76
[2018-12-20 06:37] LABS: HEMATOCRIT 27.6 % (42.0-52.0); HEMOGLOBIN 9.6 gm/dL (14.0-18.0); MCH 36.8 pg (26.0-34.0); MCHC 34.8 g/dL (28.0-37.0); MCV 105.8 fL (80.0-100.0); RBC 2.61 mil/uL (4.50-6.00); RDW 16.6 % (10.5-14.5); WBC 9.4 thou/uL (4.0-11.0)
[2018-12-20 06:56] LABS: ALBUMIN 1.9 g/dL (3.4-5.0); CALCIUM 8.8 mg/dL (8.5-10.1); CREATININE 1.1 mg/dL (0.7-1.3); TOTAL BILIRUBIN 0.9 mg/dL (<0.1-1.0); TOTAL PROTEIN 7.1 g/dL (6.4-8.2)
[2018-12-20 06:59] LABS: POTASSIUM 2.9 mmol/L (3.5-5.1)
[2018-12-20 07:40] VITALS: BP 117/50
--- NOTE | 2018-12-20 07:45 | NUR ---
Pt. more awake,verbalized some words and can follow instructions. Only moans when being repositioned otherwise comfortable. Bed alarm for safety. Maintaining O2 sat in the mid to upper 90's on 3L/NC. No respiratory distress. Kept NPO per order. Frequent oral care done. Making progress towards care plan goals.
--- NOTE | 2018-12-20 09:08 | HC ---
[facility] [place] [address] CONSULTATION Name: IQRA BRYAN Room #: 362-P ADM IN M.R.#: [id number] Admission: 12/15/18 ������������������ Attend Phys: Mickey Martinez MD Discharge: ������������������ Date of : 38 Report #: [id number] THIS REPORT FOR: //name// CC: Mickey Bradley DATE OF SERVICE: 12/19/2018 INFECTIOUS DISEASE CONSULTATION ATTENDING PHYSICIAN: Dr. Martinez. REASON FOR CONSULTATION: Bacteremia. HISTORY OF PRESENT ILLNESS: An 78-year-old white man admitted through the Emergency Room with history of abdominal pain around the belly button area. The patient found to have abnormal pancreatic function tests as well as leukocytosis, acute kidney injury and CT scan findings compatible with pancreatitis. The patient's sonogram revealed distention of the gallbladder with thickening of the wall and sludge. Hepatobiliary scan revealed an obvious of the gallbladder. His blood cultures revealed Gram-negative rods and ID opinion is requested. The patient is totally encephalopathic, unable to provide any medical information whatsoever. Consequently, all information gathered from review of records. DRUG ALLERGIES: ALLERGIC OR INTOLERANT TO CEFTRIAXONE, PENICILLIN, CARBAPENEMS, QUINOLONES, NEOMYCIN AND CIPROFLOXACIN. HE IS ALSO ALLERGIC OR INTOLERANT TO CLOPIDOGREL, ATORVASTATIN, DIPHENHYDRAMINE AND OBVIOUSLY ADHESIVE TAPE. PAST MEDICAL HISTORY: Coronary artery disease with percutaneous stenting. Severe arthritis, requiring left hip replacement twice. Obstructive sleep apnea. Peptic ulcer disease. History of rheumatic fever. SOCIAL HISTORY: Unable to obtain. REVIEW OF SYSTEMS: Unable to obtain. PHYSICAL EXAMINATION: GENERAL: Elderly man, dehydrated. VITAL SIGNS: At arrival, his temperature was 102 on 12/15/2018. His temperature went up to 100.3 yesterday and down to 98.7 today. Pulse 90, respirations 24, BP 138/76. Intake 1224, output 100, incomplete collection. O2 saturation 99% on 2 liters oxygen nasal cannula. HEENMT: Eyes closed, unable to open. Mouth, dry mucous membranes. NECK: Stiff. The patient is stiff all over. LUNGS: Few basilar crackles. [facility] [address] [place] [address] CONSULTATION Name: IQRA BRYAN Room #: 362-P [place] IN .R.#: [id number] Admission: 12/15/18 ������������������ Attend Phys: Mickey Martinez MD Discharge: ������������������ Date of : 38 Report #: [id number] HEART: No gallop or murmur. ABDOMEN: Tender. No palpable masses. GENITALIA: Rectal exam deferred. EXTREMITIES: No clubbing or cyanosis. NEUROLOGIC: The patient is encephalopathic or demented and unable to provide any information. LABORATORY DATA: BUN 28, creatinine 1.8 on admission; today, the BUN is 17 and creatinine 1.1. Hyponatremia of 130 mEq per liter, potassium 3.1 mEq per liter. Total bilirubin on admission is 3.5; this comes down to 1.4. Alkaline phosphatase 258 on admission, 201 today. CPK elevated on admission. WBC was 19,000 on admission, is 11,200 today; the hemoglobin is 9.5 g/dL. Thrombocytopenia down to 49,000, is improved to 67,000 today. The patient has folate of 4.2 and B12 of 114, obviously both abnormal. Urinalysis revealed positive bilirubin and positive and positive blood. Microscopic exam revealed some bacteriuria. No urine culture obtained. Blood cultures 2 out of 2 samples show Gram-negative rods. MEDICATIONS: The patient is currently on treatment with aztreonam 1 gram IV b.i.d. We can increase the dose in view it is improving renal function. He is receiving dextrose 1000 mL every 20 hours IV, p.r.n. acetaminophen, p.r.n. lorazepam, p.r.n. morphine sulfate and p.r.n. ondansetron. ASSESSMENT: 1. Gram-negative abi bacteremia secondary to acute cholangitis - cholecystitis and complicating pancreatitis secondary to gallstones, improving. 2. Acute cholangitis - cholecystitis and complicating pancreatitis secondary to gallstones, improving. 3. MULTIPLE DRUG ALLERGIES, LISTED ABOVE. 4. Acute kidney injury on chronic kidney disease. 5. B12 and folate deficiency. 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 7. Coronary artery disease, status post coronary artery stenting. SUGGESTIONS AND RECOMMENDATIONS: Replace folate and B12. Increase dose of aztreonam to 1 gram IV every 8 hours and add Flagyl 500 mg IV every [address] Myers, thank you for requesting my suggestions. ��������������������������������������������� <ELECTRONICALLY SIGNED> ���������������������������������������� By: Axel Petty MD ��������������������������������������������� 12/20/18 0908 1240 1337 Axel Petty MD /nt
--- NOTE | 2018-12-20 11:15 | NUR ---
Recommend consider change IVF to clinimix PPN at 100ml/hr due to day 5 NPO status. Recommend check triglyceride levels.
--- NOTE | 2018-12-20 15:48 | NUR ---
SW reviewed chart and spoke with nursing and attending physician. PT had drain placed in IR yesterday. Pt is slowly progressing towards goals for discharge. SW met with pt and at bedside to discuss post-acute plans. Pt's works at [employer] and would like a referral to be sent to their SNF. production planner to fax referral. SW is following to assist as needed with discharge planning.
--- NOTE | 2018-12-20 16:05 | NUR ---
DISCHARGE PLANNING. POST ACUTE RECOMMENDED AT DISCHARGE. REFERRAL FAXED TO [facility] ADMISSIONS. PATIENTS EMPLOYED WITH [employer]. CALL PLACED TO [facility] ADMISS[facility] TO NOTIFY OF REFERRAL. FOLLOWING TO ASSIST WITH DISCHARGE.
[2018-12-20 16:29] VITALS: BP 135/66
--- NOTE | 2018-12-20 18:38 | NUR ---
PATIENT HAS RESTED IN BED THROUGH THE DAY. EARLIER HE WAS NOTED TO BE IN PAIN. PRN PAIN MED ADMINISTERED. IT WAS EFFECTIVE HE SLEPT FOR A WHILE. HERE TO VISIT AND HE WAS CALM DURING HER VISIT. RESPIRATIONS NON LABORED. WILL CONT WITH PLAN OF CARE.
[2018-12-20 20:00] VITALS: BP 151/79
--- NOTE | 2018-12-21 03:49 | NUR ---
Pt. has been more awake and answered some questions appropriately. Able to state name and he's at the hospital. Medicated for pain with some relief. When asked how bad the pain is, he stated bad at 10. Also verbalized pain down to half after pain med. He has been repositioned for comfort. PPN infusing , kept NPO. Oral care done. ExternaL cath in place with adequate urine output. Marsha drain intact with brownish dge. He slept fair during the night. Making progress towards care plan goals.
[2018-12-21 05:30] VITALS: BP 142/73
[2018-12-21 06:13] LABS: DIRECT BILIRUBIN 0.5 mg/dL (<0.1-0.3); TOTAL BILIRUBIN 0.9 mg/dL (<0.1-1.0); TOTAL PROTEIN 6.6 g/dL (6.4-8.2)
[2018-12-21 07:49] VITALS: BP 147/74
[2018-12-21 15:13] VITALS: BP 142/77
--- NOTE | 2018-12-21 16:06 | NUR ---
SW reviewed chart and spoke with nursing and attending physician. Pt is slowly progressing towards goals for discharge. [facility] is able to accept pt when he is medically stable. [facility] liaison onsite this afternoon. MALLIKA is following to assist as needed with discharge planning.
--- NOTE | 2018-12-21 16:50 | NUR ---
PATIENT CONT TO BE QUITE WEAK THROUGH THE DAY. IN THE AM HE WAS ABLE TO ANSWER SIMPLE QUESTIONS. BUT THEN HE WAS IN A LOT PAIN. PRN PAIN MED ADMINISTERED. IN BETWEEN SLEEPING, PATIENT IS NOTED TO BE CRYING. BILIARY DRAIN PATENT AND EASILY FLUSHED. WILL CONT WITH PLAN OF CARE.
[2018-12-21 20:35] VITALS: BP 153/65
--- NOTE | 2018-12-22 03:51 | NUR ---
Patient making slow progress towards outcome goals. More alert, attempts to respond in garbled speech. PPN infusing. Biliary drain draining green liquid. Moans and yells out when turned then settles down after. Incontinent of urine, attempting to maintain male external catheter in place. Intermittent hiccups. Bital signs and rhythmstable.
[2018-12-22 07:30] VITALS: BP 144/77
--- NOTE | 2018-12-22 14:57 | NUR ---
SW reviewed chart and spoke with nursing and attending physician. Pt is slowly progressing towards goals for discharge. No weekend discharge planned. MALLIKA updated Meg at [facility], who are following and able to accept pt when medically stable. MALLIKA is following to assist as needed with discharge planning.
[2018-12-22 15:00] VITALS: BP 136/58
[2018-12-22 20:20] VITALS: BP 143/75
[2018-12-23 04:30] VITALS: BP 143/75
--- NOTE | 2018-12-23 05:02 | NUR ---
SLEPT MOST OF SHIFT. TURNED EVERY 2 HOURS. PULLED CONDOM CATH OFF STATED NO WHEN SAID WE COULD REPLACE. ORIENTED TO SELF ONLY. MOROPHINE GIVEN X1 FOR COMFORT. WORKING ON GOALS AND PLAN OF CARE FOR NOC. PROGRESSING SLOWLY TOWARDS DISCHARGE GOALS. CONTINUE TO ASSES CLOSELY.
[2018-12-23 06:33] LABS: HEMATOCRIT 26.4 % (42.0-52.0); HEMOGLOBIN 9.1 gm/dL (14.0-18.0); MCHC 34.2 g/dL (28.0-37.0); MCV 105.2 fL (80.0-100.0); PLATELET COUNT 117 thou/uL (150-400); RBC 2.51 mil/uL (4.50-6.00); WBC 15.2 thou/uL (4.0-11.0)
[2018-12-23 06:51] LABS: CALCIUM 8.5 mg/dL (8.5-10.1); MAGNESIUM 2.2 mg/dL (1.8-2.4); POTASSIUM 4.4 mmol/L (3.5-5.1); TOTAL BILIRUBIN 0.8 mg/dL (<0.1-1.0); TOTAL PROTEIN 7.1 g/dL (6.4-8.2)
[2018-12-23 07:33] VITALS: BP 149/87
[2018-12-23 07:41] LABS: ABSOLUTE NEUTROPHILS 13.5 thou/uL (1.4-8.2); ANISOCYTOSIS 1+; ATYPICAL LYMPHS 2 %; POLYCHROMASIA OCCASIONAL
[2018-12-23 07:42] LABS: LARGE PLATELETS OCCASIONAL
[2018-12-23 17:09] VITALS: BP 138/74
[2018-12-23 19:45] VITALS: BP 132/72
[2018-12-24 04:00] VITALS: BP 134/73
[2018-12-24 04:44] LABS: HEMATOCRIT 29.9 % (42.0-52.0); MCH 36.3 pg (26.0-34.0); MCHC 33.4 g/dL (28.0-37.0); MCV 108.7 fL (80.0-100.0); RBC 2.75 mil/uL (4.50-6.00); RDW 16.4 % (10.5-14.5); WBC 21.2 thou/uL (4.0-11.0)
[2018-12-24 05:02] LABS: ALBUMIN 1.9 g/dL (3.4-5.0); CALCIUM 8.8 mg/dL (8.5-10.1); CREATININE 1.2 mg/dL (0.7-1.3); POTASSIUM 4.9 mmol/L (3.5-5.1); TOTAL BILIRUBIN 1.3 mg/dL (<0.1-1.0)
--- NOTE | 2018-12-24 07:36 | NUR ---
SLEPT MOST OF SHIFT. TURNED EVERY 2 HOURS FOR COMFORT AND SKIN CARE. MOANS AND YELLS EVERY TIME TOUCHED OR TURNED. WORKING ON GOALS AND PLAN OF CARE FOR NOC. PROGRESSING TOWARDS GOALS FOR TRANSFER TO REHAB PRIOR TO SURGERY. REMAINS ORIENTED TO SELF ONLY AND WHISPERS. CONTINUE TO ASSES.
--- NOTE | 2018-12-24 08:25 | NUR ---
WHENEVER PT IS MERELY TOUCHED, HE MOANS OR HOLLERS OUT PROFANITY. MOUTH CAKED WITH DEBRI, PT FIGHTS MAKING ORAL CARE IMPOSSIBLE. RESP EVEN AND UNLABORED, RUQ DRAIN PATENT WITH RHETT DRAINAGE, CONDOM CATH WITH ADEQUATE DRAINAGE. SEE ASSESSMENT FOR DETAILS. DR. KHAN AND DR. WHITE PRESENT, THEY COLLABORATED WITH EACH OTHER AND WITH RN. SEE ORDERS. PT TO CT PER CART.
[2018-12-24 09:00] VITALS: BP 130/67
--- NOTE | 2018-12-24 09:00 | NUR ---
RETURNED FROM RADIOLOGY PER CART. URINE OBTAINED, LAB PRESENT-BLOOD & BLOOD CX'S DRAWN. PT FINALLY COOPERATIVE ENOUGH TO ALLOW ORAL CARE. COPIOUS THICK CHUNKS OF DEBRI OBTAINED FROM MOUTH. INSURANCE VERIFIER EXPLAIN, PT BEGAN HOLDING HIS R SHOULDER WITH C/O PAIN WHEN MOVED WHILE IN CT. CURRENTLY GUARDS SHOULDER WITH MOVEMENT.
[2018-12-24 09:37] LABS: URINE BILIRUBIN NEGATIVE (Negative); URINE BLOOD 1+ (Negative); URINE CLARITY CLEAR; URINE COLOR YELLOW; URINE GLUCOSE-RANDOM* NEGATIVE (Negative); URINE KETONES NEGATIVE (Negative); URINE LEUKOCYTES-REFLEX NEGATIVE (Negative); URINE NITRITE-REFLEX NEGATIVE (Negative); URINE PROTEIN (DIPSTICK) 1+ (Negative); URINE UROBILINOGEN 0.2 E.U./dl (0.2-1.0)
[2018-12-24 09:55] LABS: CASTS None Seen /LPF (None Seen); CRYSTALS None Seen /LPF (None Seen); SQUAMOUS None Seen /LPF (0-3); URINE RBC 0-2 Rare /HPF (0-2); URINE WBC-REFLEX 0-5 Rare /HPF (0-5)
--- NOTE | 2018-12-24 16:27 | NUR ---
PT PROGRESSING! SAT ON EDGE OF BED, UP TO BEDSIDE COMMODE WITH WALKER AND 2 ASSIST. HAD SMALL SOFT DK BROWN BM. AMBULATED FROM ONE SIDE OF BED TO THE OTHER TO GET INTO CHAIR. SAT IN CHAIR FOR 2 HRS. UPON RETURNING TO BED, HE AMBULATED AROUND THE BED. CONTINUES TO C/O OF DISCOMFORT TO R SHOULDER WITH MOVEMENT, THEN DISCOMFORT TOLERABLE WITHOUT MOVEMENT. HE RELUCTANTLY CLEANS HIS MOUTH WITH SWAB. SHAVED HIS RIZVI.
[2018-12-24 18:40] VITALS: BP 139/63
[2018-12-24 19:42] VITALS: BP 133/61
[2018-12-25 04:22] VITALS: BP 139/88
[2018-12-25 05:35] LABS: HEMATOCRIT 25.8 % (42.0-52.0); HEMOGLOBIN 8.6 gm/dL (14.0-18.0); MCH 35.1 pg (26.0-34.0); MCHC 33.4 g/dL (28.0-37.0); PLATELET COUNT 207 thou/uL (150-400); RBC 2.46 mil/uL (4.50-6.00); RDW 16.3 % (10.5-14.5); WBC 19.9 thou/uL (4.0-11.0)
[2018-12-25 05:55] LABS: ALBUMIN 1.9 g/dL (3.4-5.0); CALCIUM 9.4 mg/dL (8.5-10.1); CREATININE 1.2 mg/dL (0.7-1.3); POTASSIUM 4.4 mmol/L (3.5-5.1); TOTAL BILIRUBIN 0.9 mg/dL (<0.1-1.0); TOTAL PROTEIN 8.1 g/dL (6.4-8.2)
[2018-12-25 07:18] LABS: ABSOLUTE NEUTROPHILS 16.9 thou/uL (1.4-8.2); METAMYELOCYTES 1 %; MYELOCYTES 1 %
[2018-12-25 07:19] LABS: ANISOCYTOSIS 1+; MACROCYTES 1+
--- NOTE | 2018-12-25 07:38 | NUR ---
Pt. has been more awake , able to state name and he's at the hospital. He follows commands and answered questions appropriately. He has been repositioned for comfort. He only moans when being turned otherwise comfortable.Bed alarm on for safety. Kept NPO per order , PPN infusing. Kept male external cath all night except this am he took it off. Total bed change done, provided urinal and gave instructions to call staff if he needs help. Slowly making progress towards are plan goals.
[2018-12-25 08:27] LABS: HEMATOCRIT 24.6 % (42.0-52.0); HEMOGLOBIN 8.3 gm/dL (14.0-18.0); MCH 35.4 pg (26.0-34.0); MCHC 33.9 g/dL (28.0-37.0); MCV 104.4 fL (80.0-100.0); RBC 2.35 mil/uL (4.50-6.00); RDW 16.1 % (10.5-14.5); WBC 20.7 thou/uL (4.0-11.0)
[2018-12-25 09:04] VITALS: BP 144/70
--- NOTE | 2018-12-25 10:36 | NUR ---
DIscharge Planning: raffi sent updates to Meg at [facility], fax [phone]- RAFFI sent updates to [facility] fax # [phone]. RAFFI also notified Meg at facility to expect updates. Patient won't likely discharge till mid to end of this week.
--- NOTE | 2018-12-25 12:34 | NUR ---
SW reviewed chart and spoke with nursing and attending physician. Pt is slowly progressing towards goals for discharge. Pt has drain in place. Pt is on IV abx. WBC 20.7 today. city planner to fax updates to [facility] for review. Plan is for pt to d/c to [facility] when medically stable. MALLIKA is following to assist as needed with discharge planning.
[2018-12-25 15:15] VITALS: BP 134/72
[2018-12-25 19:23] VITALS: BP 136/77
--- NOTE | 2018-12-25 19:47 | NUR ---
PATIENT HAS RESTED IN BED THROUGH THE. DID GET UP TO CHAIR WITH THERAPY AND TOLERATING SITTING IN THE CHAIR FOR ABOUT TWO HOURS. EXTERNAL CATH REPLACED. PATIENT DOES HAVE PAIN WHEN MOVED. HOWEVER HE DOES NOT HAVE PAIN WHEN HE IS NOT MOVING. RESPIRATIONS NON LABORED. WILL CONT WITH PLAN OF CARE.
[2018-12-26 04:31] VITALS: BP 147/68
[2018-12-26 07:26] VITALS: BP 130/71
--- NOTE | 2018-12-26 10:56 | NUR ---
Nutrition: Pt NPO day 11. PPN meeting 41% kcal needs, 107% high end protein needs. No weight since admit, Request obtaining. Suspect loss. RECommend otain triglyceride level. Pt may benefit from adding lipids to meet higher % of kcal needs if WNL.
--- NOTE | 2018-12-26 13:33 | NUR ---
SW reviewed chart and spoke with nursing and attending physician. Pt with worsening pancreatitis. Pt had a cholangiogram today. Pt has drain in place and remains on IV abx. Clinical updates to be faxed to [facility] tomorrow for review. MALLIKA is following to assist as needed with discharge planning.
[2018-12-26 15:21] VITALS: BP 126/69
--- NOTE | 2018-12-26 18:41 | NUR ---
PATIENT CONT TO PROGRESS TOWARDS GOALS. STARTED ON CLEAR LIQUID DIET TODAY. NOTED SOME COUGHING WHEN HE DRANK. HEAD OF BED RAISED TO ABOVE 75 DEGREES AND NO COUGH NOTED. HE DID REFUSE ORAL CARE IN THE MORNING BUT LET NURSE CLEANSE HIS MOUTH THIS PM. WILL CONT WITH PLAN OF CARE.
[2018-12-26 19:34] VITALS: BP 126/62
[2018-12-27 03:30] VITALS: BP 133/70
[2018-12-27 05:49] LABS: HEMATOCRIT 23.2 % (42.0-52.0); HEMOGLOBIN 7.9 gm/dL (14.0-18.0); MCH 35.1 pg (26.0-34.0); MCHC 33.8 g/dL (28.0-37.0); MCV 103.7 fL (80.0-100.0); RBC 2.24 mil/uL (4.50-6.00); RDW 16.5 % (10.5-14.5); WBC 14.3 thou/uL (4.0-11.0)
[2018-12-27 06:05] LABS: ALBUMIN 1.8 g/dL (3.4-5.0); CREATININE 1.2 mg/dL (0.7-1.3); POTASSIUM 4.8 mmol/L (3.5-5.1); TOTAL BILIRUBIN 0.6 mg/dL (<0.1-1.0); TOTAL PROTEIN 8.2 g/dL (6.4-8.2)
[2018-12-27 07:43] VITALS: BP 123/69
--- NOTE | 2018-12-27 11:42 | NUR ---
ASSUMED CARE OF PT AT 0700. PT IS ORIENTATED TO SELF AND KNOWS THAT HE IS IN A HOSPITAL. PT HAS NO COMPLAINTS OF PAIN. EXHIBITS NO SOB. REMAINS ON RA. PT REFUSED HIS DAILY B12 INJECTION STATING THAT HE HAS HAD TOO MANY SHOTS ALREADY. BILIARY DRAIN REMAINS IN PLACE. PT IS PROGRESSING TOWARD POC GOALS. WILL CONTINUE TO MONITOR AND ASSESS.
--- NOTE | 2018-12-27 14:14 | NUR ---
MALLIKA reviewed chart and spoke with nursing and attending physician. Pt is being started on a diet today. Slowly progressing towards goals for discharge. digital sales planner to fax clinical/therapy updates to [facility] for review. Plan is for pt to d/c to [facility] when medically stable. MALLIKA updated Meg in admissions. MALLIKA attempted to leave message for pt's at her work. Pt's is off work. MALLIKA is following to assist as needed with discharge planning.
--- NOTE | 2018-12-27 14:48 | NUR ---
Sent updates to [facility], notified Meg at the facility of incoming updates being sent.
[2018-12-27 15:39] VITALS: BP 116/62
[2018-12-27 19:33] VITALS: BP 120/68
[2018-12-28 04:00] VITALS: BP 121/75
--- NOTE | 2018-12-28 05:17 | NUR ---
Pt. remains oriented to person and knows he's at the hospital. He has been repositioned. Moans when being turned stating he's hurting all over. Tylenol given with some relief. He slept fair during the night. Incontinent of bladder then used urinal x1.Protective barrier cream applied to buttocks after incont. External cath at HS. Percutaneous drain flushed with NS. Bed alarm on for safety. Tolerating full liquids diet. Slowly making progress towards care plan goals.
[2018-12-28 05:29] LABS: HEMATOCRIT 21.8 % (42.0-52.0); HEMOGLOBIN 7.4 gm/dL (14.0-18.0); MCH 35.1 pg (26.0-34.0); MCHC 33.8 g/dL (28.0-37.0); MCV 103.9 fL (80.0-100.0); RBC 2.1 mil/uL (4.50-6.00); RDW 15.9 % (10.5-14.5); WBC 14.3 thou/uL (4.0-11.0)
[2018-12-28 05:35] LABS: CALCIUM 9.2 mg/dL (8.5-10.1); CREATININE 1.1 mg/dL (0.7-1.3); POTASSIUM 4.6 mmol/L (3.5-5.1)
[2018-12-28 07:50] VITALS: BP 125/64
--- NOTE | 2018-12-28 15:08 | NUR ---
DISCHARGE PLANNING. POST ACUTE RECOMMENDED AT DISCHARGE. REFERRAL FAXED TO [facility]. CALL PLACED TO EVAN TO NOTIFY. UNIT SW AWARE. FOLLOWING TO ASSIST WITH DISCHARGE NEEDS.
[2018-12-28 16:50] VITALS: BP 136/63
[2018-12-28 20:05] VITALS: BP 136/67
--- NOTE | 2018-12-28 20:36 | NUR ---
Assumed care at 0700 this AM. Patient appearing to make slow, but noticeable progress toward goals. Patient oriented to person and that he is in the hospital. Communication is improving with pain concerns voiced along with eating preferences, and some continence when needing to urinate. Patient progressively ate more of his meals today with a diet upgrade to soft/fiber restricted from full liquids. Patient started on PO hydrocodone for generalized pain by Dr. Romeo. Pt appeared to do well with the hydrocodone and was able to sleep some after administration, but without making him too drowsy. Patient remains weak but was up to the chair and walked around room with PT today. Fall precautions in place.
[2018-12-29 04:27] VITALS: BP 109/48
--- NOTE | 2018-12-29 05:33 | NUR ---
Pt. slept fair during the night. He has been repositioned. Moans when being turned stating he hurts all over. Hydrocodone given at HS then again this am with some relief. Tolerating room air well. Tolerating current diet. Incontinent of bladder then able to use urinal at times with assistance. Right cholecystostomy tube intact with yw green dge. Bed alarm on and SCD's in place. Pt. oriented to person and place only ,follows commands and answers questions aappropriately most of the time. Making some progress towards care plan goals.
[2018-12-29 05:45] LABS: HEMATOCRIT 21.1 % (42.0-52.0); HEMOGLOBIN 7.2 gm/dL (14.0-18.0); MCH 35.9 pg (26.0-34.0); MCHC 34.1 g/dL (28.0-37.0); MCV 105.1 fL (80.0-100.0); RBC 2.01 mil/uL (4.50-6.00); RDW 16.4 % (10.5-14.5); WBC 11.7 thou/uL (4.0-11.0)
[2018-12-29 05:46] LABS: CALCIUM 9.2 mg/dL (8.5-10.1); CREATININE 1.1 mg/dL (0.7-1.3); POTASSIUM 4.7 mmol/L (3.5-5.1)
[2018-12-29 05:52] LABS: ALBUMIN 1.8 g/dL (3.4-5.0); DIRECT BILIRUBIN 0.3 mg/dL (<0.1-0.3); TOTAL BILIRUBIN 0.6 mg/dL (<0.1-1.0); TOTAL PROTEIN 7.9 g/dL (6.4-8.2)
[2018-12-29 07:55] VITALS: BP 125/65
--- NOTE | 2018-12-29 09:18 | NUR ---
Nutrition: REC consider D/C of PPN If pt consistently eating > 50% of meals.
[2018-12-29 16:34] VITALS: BP 138/73
--- NOTE | 2018-12-29 18:50 | NUR ---
PT IS A&OX2 ( PERSON AND PLACE), pt is forgetful, pt has poor eating, pt is continuing PPN AT 100ML/HR, PT'S VS ARE STABLE , PT GETS UP TO CHAIR WITH ASSIST AND STAY ABOUT 2HR, PT'S PAIN IS IN CONTROI BY MEDICATION.
[2018-12-29 19:13] VITALS: BP 123/68
--- NOTE | 2018-12-30 03:22 | NUR ---
Patient making slow progress towards outcome goals. Fair pain control with Tylenol and Ibuprofen, able to express pain. Incontinent od bladder at times. Hypoactive bowel sounds, no BM. Vital signs and rhythm stable. Biliary drain patent. Poor appetite reported by procedure analyst requiring continues PPN infusing.
[2018-12-30 04:25] VITALS: BP 120/66
[2018-12-30 05:44] LABS: HEMATOCRIT 23.7 % (42.0-52.0); MCH 35.3 pg (26.0-34.0); MCHC 33.7 g/dL (28.0-37.0); MCV 104.6 fL (80.0-100.0); RBC 2.26 mil/uL (4.50-6.00); RDW 16.2 % (10.5-14.5); WBC 9.5 thou/uL (4.0-11.0)
[2018-12-30 05:54] LABS: ALBUMIN 1.8 g/dL (3.4-5.0); CALCIUM 9.4 mg/dL (8.5-10.1); CREATININE 1.1 mg/dL (0.7-1.3); POTASSIUM 4.7 mmol/L (3.5-5.1); TOTAL BILIRUBIN 0.5 mg/dL (<0.1-1.0); TOTAL PROTEIN 8.6 g/dL (6.4-8.2)
[2018-12-30 07:34] VITALS: BP 113/69
[2018-12-30 15:41] VITALS: BP 122/68
[2018-12-30 19:30] VITALS: BP 126/66
[2018-12-31 03:50] VITALS: BP 125/74
--- NOTE | 2018-12-31 05:56 | NUR ---
needs encouraging to drink, his mouth has been very dry tonight. continues on PPN and antibiotics. drain to ruq has been flushed and is draining. does complain fo generalized pain. po pain reliever is partially effective.
[2018-12-31 07:28] VITALS: BP 130/62
[2018-12-31 15:18] VITALS: BP 126/67
--- NOTE | 2018-12-31 18:01 | NUR ---
PATIENT IS NOT MAKING MUCH PROGRESS TOWARDS DISCHARGE GOALS. HE HAS REFUSED TO EAT ALL THREE MEALS. HE WILL TASTE A PART OF THE MEAL AND REFUSE THE REST. ENCOURAGE TO DRINK ENSURE SUPPLEMENT BUT HE WILL DRINK ONLY A VERY SMALL AMOUNT AND REFUSE. NOT EASILY ENCOURAGED. NOT EASILY REDIRECTED. STILL IN PAIN TO RIGHT SHOULDER WHEN MOVED. HE HAS SLEPT MOST OF THE DAY NOT REQUIRING PAIN MEDICATION. WILL CONT WITH PLAN OF CARE.
--- NOTE | 2019-01-01 04:21 | NUR ---
patient is alert times three. patient is up one to two with walker. patient is nsr on tele. patient has poor appitite. plan is to encourage po intake so patient can get off ppn. patient has bilidrain to RUQ with orders to flush 10cc Q8h. dressing clean dry and intact and is two days old. due to change dressing tomorrow. patinet is impulsive at times. patient is easy to redirect. patient is rest comfortably in bed. pain medication treats pain. patient is not prgressing to goals as far as nutrition. wcm.
[2019-01-01 05:22] VITALS: BP 128/68
[2019-01-01 08:25] VITALS: BP 151/73
--- NOTE | 2019-01-01 09:24 | NUR ---
DP GAVE UPDATES TO Alayna/Bertha. WAITING FOR AUTHORIZATION, WILL SEND MORE THERAPY IT COMES IN.
[2019-01-01 11:47] VITALS: BP 117/60
--- NOTE | 2019-01-01 14:34 | NUR ---
MALLIKA reviewed chart and spoke with nursing and attending physician. Pt remains on PPN and may need to be started on TPN if not having adequate intake. MALLIKA met with pt and at bedside to provide update and discuss recommendation for LTAC placement. SW provided list of LTACs for review. Pt's prefers [facility] due to location. SW explained difference in level of care at LTAC v. SNF. Pt's verbalized understanding. business planner provided updated clinical info to [facility] liaison. MALLIKA faxed additional info. Awaiting decision from [facility] corporate office if they are able to accept. MALLIKA updated Meg at [facility]. MALLIKA is following to assist as needed with discharge planning.
[2019-01-01 16:27] VITALS: BP 130/56
[2019-01-01 20:51] VITALS: BP 117/70
--- NOTE | 2019-01-02 02:24 | NUR ---
PATIENT IS ALERT TO SELF AND SITUATION. PATIENT IS ROOM AIR. PATIENTS PAIN IS CONTROLLED WITH PAIN MEDICATION. PATIENT IS Q2TURN BUT PATIENT IS ABLE TO TURN SELF IN BED. PATIENTS BILI DRAIN IS CLEAN DRY AND INTACT. PATIENTS DRAIN IS FLUSHED. PATIENT HAS BEEN NPO SENSE MIDNIGHT. PENDING NG TUBE PLACEMENT. PATINET IS ACHS ACCUCHECKS. PATIENT IS UP TIMES 2 WITH WALKER. PATIENT IS NSR ON TELE. PATIENT IS RESTING COMFORTABLY IN BED. WCM. PATIENT IS PROGRESSING TO GOALS. PPN RUNNING FOR NUTRITION. NG PENDING PLACEMENT TODAY.
[2019-01-02 04:33] VITALS: BP 116/79
[2019-01-02 05:52] LABS: HEMATOCRIT 21.7 % (42.0-52.0); HEMOGLOBIN 7.4 gm/dL (14.0-18.0); MCH 35.8 pg (26.0-34.0); MCHC 34.4 g/dL (28.0-37.0); MCV 104.2 fL (80.0-100.0); RBC 2.08 mil/uL (4.50-6.00); RDW 16.3 % (10.5-14.5)
[2019-01-02 05:58] LABS: INR 1.1; PROTIME 11.5 Seconds (9.3-11.4)
[2019-01-02 06:04] LABS: ALBUMIN 1.8 g/dL (3.4-5.0); CALCIUM 9.4 mg/dL (8.5-10.1); CREATININE 1.1 mg/dL (0.7-1.3); POTASSIUM 4.5 mmol/L (3.5-5.1); TOTAL BILIRUBIN 0.3 mg/dL (<0.1-1.0); TOTAL PROTEIN 8.8 g/dL (6.4-8.2)
[2019-01-02 08:02] VITALS: BP 123/55
--- NOTE | 2019-01-02 10:38 | NUR ---
diSCHARGE pLANNING: dp SENT UPDATES, THERAPY, LAB, NOTES TO [facility].
--- NOTE | 2019-01-02 14:01 | NUR ---
DISCHARGE NOTE: MALLIKA reviewed chart and spoke with nursing and attending physician. Pt is medically stable for discharge today. Pt had NJ tube placed earlier today. Updated clinical info faxed to [facility] for review. MALLIKA discussed with [facility] liaison, who states they are able to accept pt today. Wheelchair van transportation scheduled for 1630 per [facility]'s arrangements. MALLIKA left voice message for pt's to notify of acceptance by [facility] and transportation time. MALLIKA updated attending physician. Awaiting final discharge orders/summary at this time. Nursing provided with number to call report. Chart copy ordered. MALLIKA is following to finalize discharge.
[2019-01-02] MEDS ORDERED: TYLENOL325 MG PO (14:24)
[2019-01-02] MEDS ORDERED: HYDROCODON-ACE1 EAC7 PO (14:24)
[2019-01-02] MEDS ORDERED: B12INJ IM (14:25)
[2019-01-02] MEDS ORDERED: FOLIC ACID 1 MG1 MG PO (14:25)
[2019-01-02] MEDS ORDERED: AZACTAM 1 GM VIA1 G1 IV (14:26)
--- NOTE | 2019-01-02 15:59 | NUR ---
PATIENT WILL BE DISCHARGED TO LTAC THIS PM. HE IS ALERT TO SELF AND PLACE. HE DOES NOT SEEM TO BE IN PAIN AT THIS TIME. RESPIRATIONS ARE NON LABORED. FAMILY HERE. STARTED ON NJ TUBE AND FEEDING HAS BEEN ADJUST UPWARDS TO 40MLS/HR PATIENT IS TOLERATING WELL. WILL CONT WITH PLAN OF CARE.
[2019-01-02 16:44] VITALS: BP 118/67
--- NOTE | 2019-01-04 14:06 | PATH ---
[facility] [address] [place] [address] PATHOLOGY RPT PROCEDURE Name: IQRA CHAPA Room #: 362-P DIS IN M.R.#: [id number] ������������������ Admission: 12/15/18 ������������������ Date of : 36 Discharge: 01/02/19 Report #: [id number] Path Case #: [id number] [facility] Accession Number: [id number] . 01 Material submitted: . small bowel - BX OF SMALL BOWEL ULCER . 01 Clinical history: . Pancreatitis . 02 Diagnosis: "Small bowel ulcer", biopsy: - Small bowel mucosa with moderate acute and chronic inflammation and possible focal superficial ulceration. - Normal villous architecture. (PANKAJ:kathy; 01/04/2019) MBR/01/04/2019 . 02 Electronically signed: . Natanael Sol MD, Pathologist NPI- [id number] . 01 Gross description: . The specimen is received in formalin, labeled "Irqa Chapa, biopsy of small bowel ulcer". Received are two segments of pale luna soft tissue ranging in size from 0.4 to 0.5 cm in maximum dimensions. The specimen is submitted entirely in cassette A1. (CAA; 01/03/2019) QAC/QAC . 02 Pathologist provided ICD-10: K52.9 . 02 CPT . 775871 Specimen Comment: A courtesy copy of this report has been sent to Specimen Comment: [phone], , . Specimen Comment: Report sent to ,DR MITCHELL / DR HARDIN Performed at: [address], [place] [id number] MD Ian Alberto MD Phone: [phone] Performed at: [address] [id number] MD Anh Seals MD Phone: [phone]
== END 2019-01-02 17:48 | DRG 871 ==
LOC: ER 10:21 → 3W 12:52 → EROBS 12:52 → 3W 13:50
PROVIDERS: Hospitalist; Internal Medicine; Nurse Practitioner; Physician Assistant; Specialist; Surgery; ADMIT Hospitalist
PROC: 0F9430Z Drainage of Gallbladder with Drainage Device, Percutaneous Approach (ICD-10-PCS; principal; 2018-12-19)
PROC: BF131ZZ Fluoroscopy of Gallbladder and Bile Ducts using Low Osmolar Contrast (ICD-10-PCS; 2018-12-26)
PROC: 0DB98ZX Excision of Duodenum, Via Natural or Artificial Opening Endoscopic, Diagnostic (ICD-10-PCS; 2019-01-02)
PROC: 0DHA3UZ Insertion of Feeding Device into Jejunum, Percutaneous Approach (ICD-10-PCS; 2019-01-02)
DX: A41.51 Sepsis due to Escherichia coli [E. coli] (principal); K85.90 Acute pancreatitis without necrosis or infection, unspecified; G93.41 Metabolic encephalopathy; K83.1 Obstruction of bile duct; K85.10 Biliary acute pancreatitis without necrosis or infection; N17.9 Acute kidney failure, unspecified; K83.09 Other cholangitis; E87.1 Hypo-osmolality and hyponatremia; D61.818 Other pancytopenia; K80.00 Calculus of gallbladder with acute cholecystitis without obstruction; E46 Unspecified protein-calorie malnutrition; E78.5 Hyperlipidemia, unspecified; I25.10 Atherosclerotic heart disease of native coronary artery without angina pectoris; M19.90 Unspecified osteoarthritis, unspecified site; L40.9 Psoriasis, unspecified; Z96.643 Presence of artificial hip joint, bilateral; N40.0 Benign prostatic hyperplasia without lower urinary tract symptoms; R74.0 Nonspecific elevation of levels of transaminase and lactic acid dehydrogenase [LDH]; B96.89 Other specified bacterial agents as the cause of diseases classified elsewhere; G47.33 Obstructive sleep apnea (adult) (pediatric); N18.9 Chronic kidney disease, unspecified; I12.9 Hypertensive chronic kidney disease with stage 1 through stage 4 chronic kidney disease, or unspecified chronic kidney disease; E53.8 Deficiency of other specified B group vitamins; D69.6 Thrombocytopenia, unspecified; E16.2 Hypoglycemia, unspecified; E87.6 Hypokalemia; R33.9 Retention of urine, unspecified; R41.0 Disorientation, unspecified; B96.20 Unspecified Escherichia coli [E. coli] as the cause of diseases classified elsewhere; F10.10 Alcohol abuse, uncomplicated; D50.9 Iron deficiency anemia, unspecified; R79.89 Other specified abnormal findings of blood chemistry; F03.90 Unspecified dementia, unspecified severity, without behavioral disturbance, psychotic disturbance, mood disturbance, and anxiety; R62.7 Adult failure to thrive; K29.70 Gastritis, unspecified, without bleeding; K26.9 Duodenal ulcer, unspecified as acute or chronic, without hemorrhage or perforation; Z95.5 Presence of coronary angioplasty implant and graft; Z79.899 Other long term (current) drug therapy; Z86.73 Personal history of transient ischemic attack (TIA), and cerebral infarction without residual deficits; Z68.21 Body mass index [BMI] 21.0-21.9, adult; Z79.82 Long term (current) use of aspirin; Z88.0 Allergy status to penicillin; Z88.8 Allergy status to other drugs, medicaments and biological substances; Z87.891 Personal history of nicotine dependence; Z87.11 Personal history of peptic ulcer disease
CPT/HCPCS: 10879; 62110; 62900

== ENCOUNTER 2019-02-21 15:21 | Emergency (ER) | payer OTHER ==
[~2019-02-21] VITALS: Ht 182.9 cm; Wt 68.0 kg
[~2019-02-21 15:21] MED LIST changes: +ATIVAN0.5 MG PO; +AZACTAM 1 GM VIA1 G1 IV; +B12INJ IM; +FOLIC ACID 1 MG1 MG PO; +HYDROCODON-ACE1 EAC7 PO
[2019-02-21 16:45] LABS: URINE BILIRUBIN NEGATIVE (Negative); URINE BLOOD NEGATIVE (Negative); URINE CLARITY CLEAR; URINE COLOR YELLOW; URINE GLUCOSE-RANDOM* NEGATIVE (Negative); URINE KETONES NEGATIVE (Negative); URINE LEUKOCYTES-REFLEX NEGATIVE (Negative); URINE NITRITE-REFLEX NEGATIVE (Negative); URINE PROTEIN (DIPSTICK) NEGATIVE (Negative); URINE SPECIFIC GRAVITY <= 1.005 (1.005-1.035); URINE UROBILINOGEN 0.2 E.U./dl (0.2-1.0)
[2019-02-21 16:46] LABS: ABSOLUTE NEUTROPHILS 2.3 thou/uL (1.4-8.2); BASOPHILS 0.5 % (0.0-2.0); EOSINOPHILS 0.4 % (0.0-3.0); HEMATOCRIT 29.4 % (42.0-52.0); HEMOGLOBIN 9.7 gm/dL (14.0-18.0); MCH 32.9 pg (26.0-34.0); MCHC 32.9 g/dL (28.0-37.0); MCV 99.8 fL (80.0-100.0); MONOCYTES 8.6 % (1.0-8.0); PLATELET COUNT 182 thou/uL (150-400); POLYS 42.5 % (36.0-66.0); RBC 2.95 mil/uL (4.50-6.00); RDW 14.9 % (10.5-14.5); WBC 5.4 thou/uL (4.0-11.0)
[2019-02-21 16:54] LABS: ANION GAP 10 mmol/L (7-16); BUN 18 mg/dL (7-18); CALCIUM 9.9 mg/dL (8.5-10.1); CHLORIDE 100 mmol/L (98-107); CO2 24 mmol/L (21-32); CREATININE 1.4 mg/dL (0.7-1.3); GLUCOSE 88 mg/dL (74-106); POTASSIUM 3.8 mmol/L (3.5-5.1); SODIUM 134 mmol/L (136-145)
[2019-02-21 17:04] LABS: ALBUMIN 3.3 g/dL (3.4-5.0); LIPASE 114 U/L (73-393); SGOT 33 U/L (15-37); SGPT 21 U/L (30-65); TOTAL BILIRUBIN 0.4 mg/dL (<0.1-1.0); TOTAL PROTEIN 8.8 g/dL (6.4-8.2); TROPONIN-I <0.06 ng/mL (<0.06)
[2019-02-21] MEDS ORDERED: ONDANSETRON HCL4 M2 PO (18:14)
[2019-02-21 18:35] VITALS: BP 145/65
--- NOTE | 2019-02-22 08:56 | EKG ---
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 : 1940 Requested By: Мария Clark Order Number: [id number] MD: Kishor De La Vega Measurements Intervals [place] Rate: 75 P: 40 [place]: 186 QRS: 44 QRSD: 103 T: 39 QT: 436 QTc: 487 Interpretive Statements Sinus rhythm Early R-wave progression Borderline prolonged QT interval Compared to ECG 12/15/2018 11:40:59 No significant changes Electronically Signed On 02-22-2019 8:56:29 CDT by Kishor De La Vega [email or web address] ��������������������������������������������� <ELECTRONICALLY SIGNED> ���������������������������������������� By: Kishor De La Vega MD, [facility] ��������������������������������������������� 02/22/19 [id number] Kishor De La Vega MD, [facility] /EPI
== END 2019-02-21 18:57 | disposition home or self-care (01) ==
LOC: ER 15:21
PROVIDERS: Physician Assistant
DX: R10.84 Generalized abdominal pain (principal); R11.2 Nausea with vomiting, unspecified; I25.10 Atherosclerotic heart disease of native coronary artery without angina pectoris; I10 Essential (primary) hypertension; Z95.5 Presence of coronary angioplasty implant and graft; E78.5 Hyperlipidemia, unspecified; N40.0 Benign prostatic hyperplasia without lower urinary tract symptoms; Z98.890 Other specified postprocedural states; Z96.643 Presence of artificial hip joint, bilateral; Z86.73 Personal history of transient ischemic attack (TIA), and cerebral infarction without residual deficits; Z91.048 Other nonmedicinal substance allergy status; Z88.1 Allergy status to other antibiotic agents; Z88.0 Allergy status to penicillin; Z91.041 Radiographic dye allergy status; Z88.8 Allergy status to other drugs, medicaments and biological substances; Z88.6 Allergy status to analgesic agent; Z87.891 Personal history of nicotine dependence

== ENCOUNTER 2020-02-06 15:48 | Emergency (ER) | payer OTHER ==
[~2020-02-06] VITALS: Ht 182.9 cm; Wt 77.1 kg
[2020-02-06 16:10] VITALS: BP 115/72
[2020-02-06] MEDS ORDERED: NEURONTIN 300M300 M2 PO (16:21)
[2020-02-06 16:27] LABS: URINE BILIRUBIN NEGATIVE (Negative); URINE BLOOD NEGATIVE (Negative); URINE CLARITY CLEAR; URINE COLOR YELLOW; URINE GLUCOSE-RANDOM* NEGATIVE (Negative); URINE KETONES NEGATIVE (Negative); URINE LEUKOCYTES-REFLEX NEGATIVE (Negative); URINE NITRITE-REFLEX NEGATIVE (Negative); URINE PROTEIN (DIPSTICK) NEGATIVE (Negative); URINE UROBILINOGEN 0.2 E.U./dl (0.2-1.0)
[2020-02-06 16:52] LABS: ABSOLUTE NEUTROPHILS 3.7 thou/uL (1.4-8.2); BASOPHILS 1.6 % (0.0-2.0); EOSINOPHILS 0.3 % (0.0-3.0); HEMATOCRIT 30.5 % (42.0-52.0); HEMOGLOBIN 10.6 gm/dL (14.0-18.0); LYMPHOCYTES 34.9 % (24.0-44.0); MCH 33.2 pg (26.0-34.0); MCHC 34.8 g/dL (28.0-37.0); MCV 95.3 fL (80.0-100.0); MONOCYTES 10.8 % (1.0-8.0); POLYS 52.4 % (36.0-66.0); RDW 13.3 % (10.5-14.5)
[2020-02-06 17:02] LABS: CALCIUM 9.5 mg/dL (8.5-10.1); CREATININE 1.7 mg/dL (0.7-1.3); POTASSIUM 3.8 mmol/L (3.5-5.1)
[2020-02-06 17:08] LABS: ALBUMIN 3.9 g/dL (3.4-5.0); TOTAL BILIRUBIN 0.6 mg/dL (0.2-1.0)
[2020-02-06 17:55] LABS: PLATELET COUNT 170 thou/uL (150-400)
--- NOTE | 2020-02-07 09:13 | EKG ---
[facility] [place] [address] ELECTROCARDIOGRAM REPORT Name: IQRA BRYAN [id number] Admission: 02/06/20 Attend Phys: Discharge: 02/06/20 Date of : 36 Report #: [id number] THIS REPORT FOR: cc: Henrique Bradley MD, Eric K. MD Couchonnal, Luis F. 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
--- NOTE | 2020-02-08 08:19 | EKG ---
[facility] [place] [address] ELECTROCARDIOGRAM REPORT Name: IQRA BRYAN [facility] [id number] Admission: 02/06/20 Attend Phys: Discharge: 02/06/20 Date of : 36 Report #: [id number] THIS REPORT FOR: cc: Henrique Bradley MD, Eric K. 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: : 1940 Requested By: Denzel Catalan Order Number: [id number] MD: Kishor De La Vega Measurements Intervals [place] Rate: 60 P: 42 [place]: 212 QRS: 35 QRSD: 91 T: 26 QT: 435 QTc: 435 Interpretive Statements Sinus rhythm Borderline prolonged [place] interval Compared to ECG 02/06/2020 17:11:44 No significant changes Electronically Signed On 02-08-2020 8:19:28 CDT by Kishor De La Vega [email or web address] <ELECTRONICALLY SIGNED> By: Kishor De La Vega MD, FAC 02/08/20818 37 37 Kishor De La Vega MD, [facility] /EPI
== END 2020-02-06 20:47 | disposition left against medical advice (07) ==
LOC: ER 15:48 → EROBS 20:20
PROVIDERS: Physician Assistant
DX: R41.82 Altered mental status, unspecified (principal); Z20.828 Contact with and (suspected) exposure to other viral communicable diseases; R10.84 Generalized abdominal pain; I10 Essential (primary) hypertension; I25.10 Atherosclerotic heart disease of native coronary artery without angina pectoris; E78.5 Hyperlipidemia, unspecified; Z87.891 Personal history of nicotine dependence; Z88.1 Allergy status to other antibiotic agents; Z88.8 Allergy status to other drugs, medicaments and biological substances; Z88.0 Allergy status to penicillin; Z79.82 Long term (current) use of aspirin; Z79.899 Other long term (current) drug therapy; Z98.890 Other specified postprocedural states